=== PATIENT | male | born 1955 | race Hispanic/Latino ===

== ENCOUNTER 2022-06-08 05:40 | Observation (INO) | payer OTHER ==
[2022-06-07 09:21] VITALS: BP 188/94
[~2022-06-08] VITALS: Ht 170.2 cm; Wt 99.7 kg
[2022-06-08] VITALS (23 sets, daily range): BP systolic 144–180; BP diastolic 82–98
[~2022-06-08 05:40] MED LIST: ACET-2743 PO; AEC81 PO; ALLO100T PO; CHLO25TA3 PO; CLOP75TA14 PO; DULO60CA64 PO; LABE200T7 PO; SIMV-46 PO; VALS160T29 PO; VITAMIN D PO
[2022-06-08] MEDS ORDERED: [UNRECOGNIZED DRUG - OTHER] IV SCH (06:00)
[2022-06-08] MEDS ORDERED: TRANEXAMIC ACID IV SCH (06:00)
[2022-06-08] MEDS: CEFAZOLIN SODIUM 1 GM VIAL IVP SCH ×4 (06:00→23:50)
[2022-06-08] MEDS: LACTATED RINGERS 1000ML 1,000 ML IV SCH ×2 (07:25→11:53)
[2022-06-08] MEDS ORDERED: TRANEXAMIC ACID 1000MG/10ML ONE (09:08)
[2022-06-08] MEDS ORDERED: ROPIVACAINE 0.5% 5MG/ML 30ML IJ ONE (09:22)
[2022-06-08] MEDS ORDERED: PROPOFOL 10 MG/ML 20ML VIAL IV ONE (09:23)
[2022-06-08] MEDS ORDERED: GLYCOPYRROLATE 1 MG/5 ML SYRINGE ONE (09:23)
[2022-06-08] MEDS ORDERED: SUCCINYLCHOLINE CHLORIDE 20 MG/ML 10 ML VIAL ONE ×2 (09:23→09:24)
[2022-06-08] MEDS ORDERED: DEXAMETHASONE SOD PHOSPHATE 10MG/ML 1ML VIAL ONE (09:23)
[2022-06-08] MEDS ORDERED: LIDOCAINE PF 100MG/5ML (2%) SYRINGE 5ML ONE ×2 (09:23→09:24)
[2022-06-08] MEDS ORDERED: ONDANSETRON 4MG INJ ONE (09:24)
[2022-06-08] MEDS ORDERED: MIDAZOLAM HCL 1 MG/ML 2ML VIAL ONE (09:24)
[2022-06-08] MEDS ORDERED: FENTANYL CITRATE PF 50 MCG/1 ML 2ML VIAL ONE ×2 (09:24→10:51)
[2022-06-08] MEDS ORDERED: ROCURONIUM 10MG/1ML SYR 10 MG/ML ML ONE (09:24)
[2022-06-08] MEDS ORDERED: NEOSTIGMINE 5MG/5ML SYR IV ONE (09:24)
[2022-06-08] MEDS ORDERED: EPHEDRINE SULFATE 50 MG/ML AMPULE ONE (10:13)
[2022-06-08] MEDS ORDERED: ACETAMINOPHEN 500 MG TABLET PO SCH (11:30)
[2022-06-08] MEDS ORDERED: HYDROCODONE/ACETAMINOPHEN 10/325 MG TAB PO PRN (11:30)
[2022-06-08] MEDS: 0.9%NACL 1000ML 1,000 ML IV SCH ×2 (11:30→20:44)
[2022-06-08] MEDS ORDERED: HYDROCODONE/ACETAMINOPHEN 5/325 MG TAB PO PRN (11:30)
[2022-06-08] MEDS ORDERED: FERROUS FUMARATE 324 MG TABLET PO PRN (11:30)
[2022-06-08] MEDS ORDERED: ONDANSETRON 4MG INJ IVP PRN (11:30)
[2022-06-08] MEDS: INSULIN HUMULIN R 100 UNIT/ML 3ML SQ SCH ×3 (11:30→20:44)
[2022-06-08] MEDS: TRAMADOL HCL 50 MG TABLET PO SCH ×3 (12:00→23:50)
[2022-06-08] MEDS ORDERED: MEPERIDINE-PF 25 MG/ML SYG ONE (12:02)
[2022-06-08] MEDS ORDERED: KETOROLAC 30MG VIAL (30MG/ML) ONE (12:43)
[2022-06-08] MEDS: DULOXETINE HCL 30 MG CAP PO SCH (20:09)
[2022-06-08] MEDS: ASPIRIN 81 MG EC TAB PO SCH (20:09)
[2022-06-08] MEDS: MORPHINE 4 MG SYG IVP PRN (20:10)
[2022-06-08] MEDS: LABETALOL HCL 200 MG TABLET PO SCH (20:10)
[2022-06-08] MEDS: FAMOTIDINE 20MG TAB PO SCH (20:10)
[2022-06-08] MEDS: ACETAMINOPHEN 500 MG TABLET PO SCH (22:10)
[2022-06-09] VITALS (7 sets, daily range): BP systolic 139–174; BP diastolic 73–93
[2022-06-09 04:14] LABS: HEMATOCRIT 35.6 % (42-54); MEAN CORPUSCULAR HEMOGLOBIN 32.2 pg (27.0-33.0); MEAN CORPUSCULAR HGB CONC 34.3 g/dL (32.0-36.0); MEAN CORPUSCULAR VOLUME 93.9 fL (79-99); RED BLOOD CELL COUNT(AUTO) 3.79 MIL/uL (4.50-6.20); RED CELL DISTRIBUTION WIDTH 13.2 % (11.0-15.5); WHITE BLOOD COUNT (AUTO) 10.5 K/uL (4.8-10.8)
[2022-06-09 04:31] LABS: CREATININE 1.5 mg/dL (0.5-1.5); POTASSIUM 3.2 mmol/L (3.5-5.1)
[2022-06-09] MEDS: TRAMADOL HCL 50 MG TABLET PO SCH ×3 (05:05→18:47)
[2022-06-09] MEDS: ACETAMINOPHEN 500 MG TABLET PO SCH ×3 (05:06→21:40)
[2022-06-09] MEDS: INSULIN HUMULIN R 100 UNIT/ML 3ML SQ SCH ×4 (05:45→20:19)
[2022-06-09] MEDS: MORPHINE 4 MG SYG IVP PRN ×2 (05:47→19:51)
[2022-06-09] MEDS: 0.9%NACL 1000ML 1,000 ML IV SCH (07:30)
[2022-06-09] MEDS ORDERED: POTASSIUM CHLORIDE 20MEQ/100ML 100 ML IV PRN (08:00)
[2022-06-09] MEDS ORDERED: MAGNESIUM 2GM PREMIX 50ML 50 ML IV SCH (08:00)
[2022-06-09] MEDS ORDERED: LIDOCAINE HCL-MPF 1% 2ML VIAL IV PRN (08:00)
[2022-06-09] MEDS ORDERED: POTASSIUM CHLORIDE 10% ELIXIR 20 MEQ/15 ML UDCUP PO PRN (08:00)
[2022-06-09] MEDS: **HM** CHLORTHALIDONE 25MG PO SCH (09:00)
[2022-06-09] MEDS: LOSARTAN 100 MG TABLET PO SCH (09:25)
[2022-06-09] MEDS: CLOPIDOGREL 75MG TAB PO SCH (09:25)
[2022-06-09] MEDS: POLYETHYLENE GLYCOL 3350 17 GM POWD.PACK PO SCH (09:25)
[2022-06-09] MEDS: FAMOTIDINE 20MG TAB PO SCH ×2 (09:25→19:50)
[2022-06-09] MEDS: ASPIRIN 81 MG EC TAB PO SCH ×2 (09:26→19:50)
[2022-06-09] MEDS: KCL 20 MEQ ERTAB PO PRN ×3 (11:40→21:42)
[2022-06-09] MEDS: DULOXETINE HCL 30 MG CAP PO SCH (19:50)
[2022-06-09] MEDS: LABETALOL HCL 200 MG TABLET PO SCH (19:51)
[2022-06-10] VITALS: BP 166/85
[2022-06-10] MEDS: TRAMADOL HCL 50 MG TABLET PO SCH ×3 (00:14→11:40)
[2022-06-10 00:53] VITALS: BP 154/83
[2022-06-10 04:00] VITALS: BP 167/79
[2022-06-10 05:45] LABS: MAGNESIUM 1.8 mg/dL (1.80-2.40); POTASSIUM 3.5 mmol/L (3.5-5.1)
[2022-06-10] MEDS: INSULIN HUMULIN R 100 UNIT/ML 3ML SQ SCH ×2 (05:51→11:20)
[2022-06-10] MEDS: KCL 20 MEQ ERTAB PO PRN ×2 (05:55→11:41)
[2022-06-10] MEDS: ACETAMINOPHEN 500 MG TABLET PO SCH (05:56)
[2022-06-10 08:03] VITALS: BP 126/95
[2022-06-10] MEDS: **HM** CHLORTHALIDONE 25MG PO SCH (09:00)
[2022-06-10] MEDS: ASPIRIN 81 MG EC TAB PO SCH (09:31)
[2022-06-10] MEDS: FAMOTIDINE 20MG TAB PO SCH (09:31)
[2022-06-10] MEDS: POLYETHYLENE GLYCOL 3350 17 GM POWD.PACK PO SCH (09:31)
[2022-06-10] MEDS: CLOPIDOGREL 75MG TAB PO SCH (09:31)
[2022-06-10] MEDS: LOSARTAN 100 MG TABLET PO SCH (09:31)
[2022-06-10] MEDS: MORPHINE 4 MG SYG IVP PRN (09:32)
[2022-06-10 11:53] VITALS: BP 90/66
[2022-06-10 15:49] VITALS: BP 107/89
[2022-06-11] MEDS ORDERED: BISACODYL 10 MG SUPP.RECT RC PRN (11:30)
== END 2022-06-10 17:49 | disposition home or self-care (01) ==
LOC: DAH 05:40 → EDHIP 05:41 → DAH 05:41 → 4DH 13:12 → 4CH 17:03
PROVIDERS: ADMIT Orthopaedic Surgery; ATTEND Orthopaedic Surgery
DX: M17.12 Unilateral primary osteoarthritis, left knee (principal); Z20.822 Contact with and (suspected) exposure to COVID-19; M65.9 Synovitis and tenosynovitis, unspecified; M24.562 Contracture, left knee; E87.6 Hypokalemia; I10 Essential (primary) hypertension; J44.9 Chronic obstructive pulmonary disease, unspecified; Z79.899 Other long term (current) drug therapy
CPT/HCPCS: 0055T; 27447; 36415; 64447; 76942; 80048; 82948; 83735; 84132; 85027; 87426; 87641; 96365; 96366; 96375; 96376; 97039; G0378; J0330; J0690; J1100; J1885; J2001; J2175; J2250; J2270; J2405; J2704; J2710; J2795; J3010; J3475; J3490; J7030; J7120

== ENCOUNTER 2022-07-13 05:50 | Day surgery (SDC) | payer OTHER ==
[2022-07-09 10:45] LABS: BASOPHILS % (AUTO) 0.3 % (0.0-5.0); EOSINOPHILS % (AUTO) 2.4 % (0.0-8.0); LYMPHOCYTES % (AUTO) 17.3 % (21.0-51.0); MEAN CORPUSCULAR HEMOGLOBIN 31.9 pg (27.0-33.0); MEAN CORPUSCULAR HGB CONC 33.9 g/dL (32.0-36.0); MEAN CORPUSCULAR VOLUME 93.8 fL (79-99); MONOCYTES % (AUTO) 7.3 % (3.0-13.0); NEUTROPHILS % (AUTO) 72.3 % (40.0-77.0); PLATELET COUNT (AUTO) 240 K/uL (130-400); RED BLOOD CELL COUNT(AUTO) 4.05 MIL/uL (4.50-6.20); RED CELL DISTRIBUTION WIDTH 13.2 % (11.0-15.5); WHITE BLOOD COUNT (AUTO) 7.8 K/uL (4.8-10.8)
[2022-07-09 10:55] LABS: CREATININE 1.3 mg/dL (0.5-1.5); POTASSIUM 3.9 mmol/L (3.5-5.1)
[2022-07-12 11:23] VITALS: BP 151/88
[~2022-07-13] VITALS: Ht 170.2 cm; Wt 94.3 kg
[2022-07-13] VITALS (15 sets, daily range): BP systolic 117–160; BP diastolic 63–84
[~2022-07-13 05:50] MED LIST changes: -ACET-2743 PO; -CLOP75TA14 PO; +CLOP75TA32 PO; -DULO60CA64 PO; +LACTATED RINGERS 1000ML 1,000 ML IV SCH; +VITAD50000 PO; -VITAMIN D PO
[2022-07-13] MEDS: CEFAZOLIN SODIUM 1 GM VIAL IVP SCH ×2 (06:00→07:15)
[2022-07-13] MEDS ORDERED: PROPOFOL 10 MG/ML 20ML VIAL IV ONE (06:56)
[2022-07-13] MEDS ORDERED: FENTANYL CITRATE PF 50 MCG/1 ML 2ML VIAL ONE (06:56)
== END 2022-07-13 09:05 | disposition home or self-care (01) ==
LOC: DAH 05:50
PROVIDERS: ATTEND Orthopaedic Surgery
DX: M24.562 Contracture, left knee (principal); I10 Essential (primary) hypertension; M10.9 Gout, unspecified; E78.5 Hyperlipidemia, unspecified; Z79.82 Long term (current) use of aspirin; Z79.899 Other long term (current) drug therapy
CPT/HCPCS: 80048; 85025; 87426; 36415; 27570; 93005; A6260; A4663; A4606; J7120; J3010; J0690; J2704; A5120; A4215; A4223; A4222; A4221